=== PATIENT | male | born 1960 | race African-American/Black ===

== ENCOUNTER 2024-12-14 06:13 | Day surgery (SDC) | payer OTHER, SELFPAY ==
[2024-12-09 12:49] VITALS: BMI 29.0
--- NOTE | ~2024-12-14 | XR_ITS ---
INTRAOPERATIVE FLUOROSCOPY: CLINICAL HISTORY: 64 years old Male; BILATERAL L2-3 TRANSFORAMINAL EPIDURAL STEROID INJECTION PROCEDURE COMMENTS: Limited intraoperative fluoroscopy of the lumbar spine was performed. CUMULATIVE DOSE: 22.4 mGy FLUOROSCOPY TIME: 44 seconds FINDINGS/IMPRESSION: Please refer to operative note for further details. Reviewed, dictated and finalized at location A.
[2024-12-14 07:06] VITALS: BP 141/77; PULSE 76; RESP 18; TEMP 36.8; O2SAT 100; BMI 29.9
--- NOTE | 2024-12-14 07:21 | WPDHPUPDATE1 ---
History and Physical Update Update Date/Time: 12/14/24 07:21 History and Physical has been reviewed, including an updated exam of the patient. There are NO changes in the patient's condition. Risks, benefits, and alternatives have been discussed and questions answered. Patient agrees to proceed with procedure.
--- NOTE | 2024-12-14 07:22 | P.OP_ITS ---
Procedure Note - Detailed Date of Procedure 12/14/24 Pre-op Diagnosis Spondylosis w/o Myelopathy or Radiculopathy, Post-op Diagnosis Same Procedure Performed Bilateral Lumbar Transforaminal Epidural Steroid Injection under Fluoroscopic G uidance and with Contrast Control at L2-3. Surgeon Wilberto Mary MD Anesthesia Local Description of Procedure INFORMED CONSENT: Risks, benefits and alternatives to the procedure were discussed in detail with the patient who expressed explicit understanding and consent to proceed. Patient was informed verbally and in written form regarding the risks associated with the procedure including the low risk of serious infection, bleeding/bruising, allergic reaction, nerve or organ injury, paralysis, procedural site pain or discomfort, worsening pain and/or mobility, failure to treat and/or disfigurement. The patient expressed explicit understanding and consent to proceed. All materials required for the procedure were available prior to procedure start. Site and side was marked prior to procedure and confirmed in the presence of the patient. PROCEDURE IN DETAIL: The patient was brought to the procedural suite and placed in the prone position. Patient was made comfortable with use of pillows under the head/chest, hips and ankles. Skin overlying the injection site was prepared broadly with ChloraPrep applicator and draped in a sterile manner. Aseptic technique was employed throughout. The endplates of the vertebral body at the site of interest were aligned in the AP view. Ipsilateral oblique angulation was utilized to better visualize the neuroforamen of interest. Local anesthesia was established by infiltration with approximately 5 mL of 0.5% PF lidocaine via a 1-1/2 inch 27-gauge needle. A 22-gauge 5.0 inch Jaki (pencil point) spinal needle was advanced until the needle approached the 6 o'clock position on the pedicle just superior to the exiting nerve root. on the right at L2-3. Lateral view was utilized to confirm appropriate position of the needle tip within the superior and posterior portion of the respective foramen. In an AP view, 1 mL of Omnipaque 300 contrast medium was injected after negative aspiration for CSF, blood or other bodily fluid, showing appropriate neurogram without evidence of intravascular or intrathecal spread of contrast. Digital subtraction imaging was used with an additional 1ml of the same contrast medium to confirm absence of intravascular contrast spread. A 1mL solution containing 3 mg of betamethasone was injected after negative repeat aspiration. Appropriate spread of the injectate was confirmed with washout of previously injected contrast. No parasthesias were elicited. Needle was removed completely intact without difficulty. The same exact procedure was repeated for all remaining levels on the contralateral side, left L2-3 neuroforamen, modified as necessary to accommodate for the new target location with identical findings and results and no evidence of complication. Images were saved and documented in the patient chart. Patient's skin was cleaned and sterile bandage applied. The patient tolerated the procedure well. The patient was transported to the recovery area in stable condition where they were observed for an appropriate amount of time prior to discharge, without evidence of complication. The patient was instructed to avoid excessive activity for the next 48 hours, including climbing and frequent use of stairs. Showers only for 48 hours. They were instructed not to drive or operate heavy machinery for 24 hours. They are to monitor for severe headaches, fevers, chills, night sweats, erythema/swelling at the site or any other signs of infection, bleeding/bruising, bowel or bladder changes as well as new pain, weakness or numbness in the upper or lower extremity. Should they notice these changes, they are instructed to call our office immediately or report directly to the nearest Emergency Department if no answer or if after posted office hours. COMPLICATIONS: None COMMENTS: None CONTRAST WASTED: 26 mL Omnipaque 300. STEROID WASTED: 0 mg of betamethasone. Complications No immediate complications Condition Stable Disposition Same day [facility] Billing Surgery - Charge Forward: Surgery Billing
[2024-12-14 07:35] VITALS: BP 133/73; PULSE 86; RESP 10; O2SAT 96
[2024-12-14 07:43] VITALS: BP 128/80; PULSE 82; RESP 15; O2SAT 96
[2024-12-14 07:46] VITALS: BP 135/81; PULSE 84; RESP 10; O2SAT 97
[2024-12-14] MEDS: BETAMETHASONE SODIUM PHOSPHATE PF INJ 6 MG/ML VIAL INFILTRATE (07:48)
[2024-12-14] MEDS: LIDOCAINE 1% PF INJ 5 ML VIAL INFILTRATE (07:48)
[2024-12-14] MEDS: LIDOCAINE 2% PF LOCAL INJ 5 ML VIAL 1 ML INFILTRATE (07:48)
[2024-12-14 07:51] VITALS: BP 111/93; PULSE 73; RESP 18; O2SAT 100
== END 2024-12-14 08:08 | disposition home or self-care (01) ==
PROVIDERS: PCP Internal Medicine Gastroenterology; Visit Provider Anesthesiology Pain Medicine
PROC: (CPT 64483; principal; 2024-12-14 07:30)
DX: M47.816 Spondylosis without myelopathy or radiculopathy, lumbar region (principal)
CPT/HCPCS: 64483; 99199

== ENCOUNTER 2025-02-08 09:07 | Day surgery (SDC) | payer OTHER, SELFPAY ==
[2025-01-27 08:40] VITALS: BMI 29.5
--- NOTE | ~2025-02-08 | XR_ITS ---
EXAM: XR fluoroscopy no charge - 02/08/2025 10:25 CDT History: 64 years old Male with MEI L3-4,TRANSFORAMINAL EPIDURAL STEROID INJ Fluoroscopy time: 17.1 sec FINDINGS/ IMPRESSION: Multiple fluoroscopic images of epidural steroid injection. Reviewed, dictated and finalized at location A.
--- OUTSIDE RECORDS SUMMARY | 2025-02-08 09:31 | XMS_ITS | Clinical Summary ---
Author Organization [facility] Address [address] [place] [address] Phone Care Team Providers Care Technical Operations Manager Name Role Phone Fermín Yates APRN, STACK YIELD ENGINEER Primary Care Pr ovider Allergies Active Allergy Reactions Criticality Noted Date Comments Tramadol Rash,Other (see Comments) 04/01/2018 Caused shakiness and didn't work Medications risperiDONE (RISPERDAL) 2 MG Tablet Take 2 mg by mouth daily. Active albuterol (PROVENTIL HFA, VENTOLIN HFA) 108 (90 Base) MCG/ACT Aerosol Solution take 2 Puffs by inhalation every 4 hours as needed for Wheezing. Active famotidine (PEPCID) 20 MG Tablet Take 1 Tablet by mouth 2 times daily as needed for Heartburn. 30 Tablet 3 Active empagliflozin (Jardiance) 10 MG TabletIndication s:Type 2 diabetes mellitus without complication, without long-term current use of insulin Take 1 Tablet by mouth daily. 90 Tablet 1 5 Active metFORMIN (GLUCOPHAGE) 500 MG TabletIndication s:Type 2 diabetes mellitus without complication, without long-term current use of insulin Take 1 Tablet by mouth 2 times daily (with meals). 180 Tablet 1 5 Active Acetaminophen-Co deine 300-60 MG TabletIndication s:Chronic back pain Take 1 Tablet by mouth 3 times daily as needed (moderate to severe pain). 90 Tablet 5 Active amLODIPine (NORVASC) 10 MG TabletIndication s:Primary hypertension Take 1 Tablet by mouth daily. 90 Tablet 1 5 Active sucralfate (CARAFATE) 1 GM Tablet Take 1 Tablet by mouth every 6 hours. 120 Tablet 3 025 Discontin ued(Med List Clean Up) amLODIPine (NORVASC) 5 MG Tablet Take 5 mg by mouth daily. Discontin ued(Reord er) acetaminophen-co deine (TYLENOL #3) 300-30 MG TabletIndication s:Chronic back pain Take 1 Tablet by mouth every 6 hours as needed for Moderate or more severe pain. 12 Tablet 4 025 Discontin ued(Alter jan therapy) ketorolac (TORADOL) 10 MG Tablet Take 1 Tablet by mouth every 6 hours as needed for Moderate or more severe pain. 15 Tablet 4 025 Discontin ued(Med List Clean Up) dicyclomine (BENTYL) 20 MG Tablet Take 1 Tablet by mouth every 6 hours. 60 Tablet 4 025 Discontin ued(Med List Clean Up) acetaminophen-co deine (TYLENOL #3) 300-30 MG TabletIndication s:Chronic bilateral low back pain without sciatica Take 1-2 Tablets by mouth every 4 hours as needed for Moderate or more severe pain. 20 Tablet 5 025 Discontin ued(Dupli anupam Order) ketorolac (TORADOL) 10 MG Tablet Take 1 Tablet by mouth every 4 hours as needed for Mild or more severe pain. 30 Tablet 5 025 Discontin ued(Med List Clean Up) empagliflozin (Jardiance) 10 MG Tablet Take 10 mg by mouth daily. Discontin ued(Reord er) metFORMIN (GLUCOPHAGE) 500 MG Tablet Take 500 mg by mouth 2 times daily (with meals). Discontin ued(Reord er) Active Problems Problem Noted Date Diagnosed Date Arthritis Asthma Back pain COPD (chronic obstructive pulmonary disease) Diabetes mellitus Hypertension Schizophrenia Encounters Date Type Department Care Team Description 01/20/2025 Results Follow-Up [facility] - Family Medicine [address] [place] [address] Fermín Yates APRN, CNP CMP (COMPREHENSIVE METABOLIC PANEL), LIPID PANEL, HEMOGLOBIN A1C W/ ESTIMATED GLUCOSE, Additional followed-up results: 6 01/19/2025 Telephone [facility] [address] [place] [address] Fermín Yates APRN, CNP 01/18/2025 10:11 AM CDT - 01/18/2025 11:59 PM CDT Hospital Encounter [facility] [address] [place] [id number] Fermín Yates APRN, CNP Discharge Disposition: Discharged to home or Selfcare 01/18/2025 9:00 AM CDT Office Visit [facility] [address] [place] [address] Fermín Yates APRN, CNP Type 2 diabetes mellitus without complication, without long-term current use of insulin (Primary Dx); Primary hypertension; Chronic back pain; Elevated LFTs; Therapeutic drug monitoring; Screening for prostate cancer; Encounter for hepatitis C virus screening test for high risk patient; Encounter for immunization Discharge Disposition: Discharged to home or Selfcare 01/18/2025 Travel 12/28/2024 Telephone [facility] [address] [place] [address] Fermín Yates APRN, CNP from Last 3 Months Immunizations Immunization Administration Dates Next Due Influenza Vaccine, MDCK,quad rivalent, pres free 03/04/2022 Influenza Vaccine, Quadrivalent, PF 02/01/2023,0 03/13/2021,03/19/2020 Influenza, Injectable, Mdck, Preservative Free 03/02/2024 Pneumococcal conjugate PCV20 , polysaccharide NRR652 conjugate, adjuvant, PF 01/18/2025 TDAP Vaccine 09/20/2022 Social History Tobacco Use Types Packs/Day Years Used Date Smoking Tobacco: Former Cigarettes 0.5 17 1 978 1994 Smokeless Tobacco: Never Tobacco Cessation:Counseling Given: Not Answered Alcohol Use Standard Drinks/Week Comments No 0 (1 standard drink = 0.6 oz pur e alcohol) PHQ-2 Answer Date Recorded Total Score - Questions 1-9 26 12/23 Sex and Gender Information Value Date Recorded Sex Assigned at Not on file Legal Sex Male 8:37 PM CDT Gender Identity Not on file Sexual Orientation Not on file Last Filed Vital Signs Vital Sign Reading Time Taken Comments Blood Pressure 138/84 01/18/2025 8:47 AM CDT Pulse 74 01/18/2025 8:47 AM CDT Temperature 36.7 C (98 F) 01/18/2025 8:47 AM CDT Respiratory Rate 18 01/18/2025 8:47 AM CDT Oxygen Saturation 98% 01/18/2025 8:47 AM CDT Inhaled Oxygen Concentration - - Weight 83.5 kg (184 lb) 01/18/2025 8:47 AM CDT Height 167.6 cm (5' 6) 01/18/2025 8:47 AM CDT Body Mass Index 29.7 01/18/2025 8:47 AM CDT Plan of Treatment Upcoming Encounters Date Type Department Care Team (Late st Contact Info) Description 04/20/2025 11:30 AM CDT [facility] [address] [place] [address] Fermín Yates, NEUROLOGY PHYSICIAN ASSISTANT, STACK YIELD ENGINEER [address] [address] Health Maintenance Due Date Last Done Comments Diabetes: Eye Exam 1962 Diabetes: Foot Exam 1960 Cologuard 11/06/2007 Colonoscopy 11/06/2007 Colorectal Cancer Screening 11/06/2007 Immunochemical Fecal Occult Blood 11/06/2007 Zoster Immunization (1 of 2) 2012 Hepatitis B Immunization (1 of 3 - Risk 3-dose series) 2022 Respiratory Syncytial Virus (RSV) Immunization (Adult) (1 - Risk 60-74 years 1-dose series) 2022 SARS-COV-2 Immunization ( season) 2024 03/13/2023, 06/25/2022, 06/16/2021, Additional history exists Influenza Immunization (#1) 2025 090 02/2024, 02/01/2023, 03/04/2022, Additional history exists Diabetes: Hemoglobin A1c 07/21/2025 025, 06/23/2024, 12/28/2023, Additional history exists Diabetes: Nephropathy Screening 01/18/2026 01/18/2025, 01/18/2025, 06/23/2024, Additional history exists Td Immunization Every 10 Years (Adults With 1 Tdap) 09/20/2032 09/20/2022 DTaP/Tdap/Td Immunization Discontinued 09/20/2022 TdaP Immunization Discontinued 09/20/2022 Hepatitis C Virus (HCV) Screening Discontinued 01/18/2025, 01/18/2025 PSA Discussion Completed 01/18/2025 Pneumococcal Immunization (50+ years) Completed 01/18/2025 Pneumococcal Immunization Combined Discontinued 01/18/2025 Human Papillomavirus (HPV) Immunization Aged Out No longer eligible based on patient's age to complete this topic Meningococcal Immunization (ACWY) Aged Out No longer eligible based on patient's age to complete this topic Rotavirus Immunization Aged Out No lo nger eligible based on patient's age to complete this topic Procedures Procedure Name Priority Date/Time Associated Diagnosis Comments CBC WITH AUTO DIFFERENTIAL Routine 01/18/2025 10:23 AM CDT Type 2 diabetes mellitus without complication, without long-term current use of insulin HEPATITIS C RNA QUANT PCR VIRAL LOAD Routine 01/18/2025 10:23 AM CDT Encounter for hepatitis C virus screening test for high risk patient HEPATITIS C ANTIBODY Routine 01/18/2025 10:23 AM CDT Encounter for hepatitis C virus screening test for high risk patient PSA SCREEN Routine 01/18/2025 10:23 AM CDT Screening for prostate cancer UR MICROALBUMIN/CREATINI NE RATIO RANDOM Routine 01/18/2025 10:23 AM CDT Type 2 diabetes mellitus without complication, without long-term current use of insulin HEMOGLOBIN A1C W/ ESTIMATED GLUCOSE Routine 01/18/2025 10:23 AM CDT Type 2 diabetes mellitus without complication, without long-term current use of insulin COMPLETE BLOOD COUNT (CBC) WITH DIFF Routine 01/18/2025 10:23 AM CDT Type 2 diabetes mellitus without complication, without long-term current use of insulin LIPID PANEL Routine 01/18/2025 10:23 AM CDT Type 2 diabetes mellitus without complication, without long-term current use of insulin CMP (COMPREHENSIVE METABOLIC PANEL) Routine 01/18/2025 10:23 AM CDT Type 2 diabetes mellitus without complication, without long-term current use of insulin EKG 12 LEAD Routine 01/18/2025 10:15 AM CDT Type 2 diabetes mellitus without complication, without long-term current use of insulin URINE DRUG SCREEN Routine 01/18/2025 Chronic back pain Therapeutic drug monitoring from Last 3 Months Results * (ABNORMAL) HEPATITIS C RNA QUANT PCR VIRAL LOAD (01/18/2025 10:23 AM CDT) HCV RNA QUANT PCR 213,000(H) <=0 IU/mL 01/19/2025 10:52 PM CDT [facility] HCV RNA QT LOG10 5.33(H) <=0.00 Log10 IU/mL 01/19/2025 10:52 PM CDT [facility] Blood Venipuncture / Unknown 01/18/2025 10:23 AM CDT 01/19/2025 5:17 AM CDT Narrative [facility] - 01/19/2025 10:52 PM CDT This test was performed using [employer]ANCH[employer] 5800 Real Time PCR. us Fermín Yates APRN, STACK YIELD ENGINEER IMMUNOLOGY ORDER MAGDALENA Final Result [facility] [address] [place] [address], * (ABNORMAL) HEMOGLOBIN A1C W/ ESTIMATED GLUCOSE (01/18/2025 10:23 AM CDT) Pathologist [facility] HGB-A1C 6.5(H) 4.0 - 6.0 % 01/18/2025 11:13 AM CDT [facility] Est Average Glucose 139.9 mg/dL 01/18/2025 11:13 AM CDT [facility] Blood Venipuncture / Unknown 01/18/2025 10:23 AM CDT 01/18/2025 11:02 AM CDT Narrative [facility] - 01/18/2025 11:13 AM CDT HEMOGLOBIN A1C: DIABETIC PATIENTS: WELL-CONTROLLED: 6.2 - 7.0 INTERMEDIATE WELL-CONTROLLED: 7.0 - 9.0 POORLY-CONTROLLED: >9.0 Specimens containing greater than 5% of Hemoglobin F may result in lower than expected % HbA1C results. us Fermín Yates APRN, STACK YIELD ENGINEER CHEMISTRY ORDERA BLES Final Result [facility] [address] [place] [address] * (ABNORMAL) CBC WITH AUTO DIFFERENTIAL (01/18/2025 10:23 AM CDT) [facility] WBC 3.11(L) 4.00 - 12.00 10(3)/mcL 01/18/2025 11:08 AM CDT [facility] RBC 4.88 4.40 - 5.80 10(6)/mcL 01/18/2025 11:08 AM CDT [facility] HEMOGLOBIN (HGB) 14.1 13.0 - 16.5 g/dL 01/18/2025 11:08 AM CDT [facility] HEMATOCRIT (HCT) 43.1 38.0 - 50.0 % 01/18/2025 11:08 AM CDT [facility] MCV 88.3 82.0 - 96.0 fL 01/18/2025 11:08 AM CDT [facility] MCH 28.9 26.0 - 32.0 pg 01/18/2025 11:08 AM CDT [facility] MCHC 32.7 31.0 - 36.0 g/dL 01/18/2025 11:08 AM CDT [facility] PLATELET COUNT 177 140 - 440 10(3)/mcL 01/18/2025 11:08 AM CDT [facility] RDW 13.6 11.8 - 15.5 % 01/18/2025 11:08 AM CDT [facility] MPV 10.2 8.0 - 12.6 fL 01/18/2025 11:08 AM CDT [facility] NEUTROPHILS 39.1(L) 40.0 - 68.0 % 01/18/2025 11:08 AM CDT [facility] LYMPHOCYTES 38.3 19.0 - 49.0 % 01/18/2025 11:08 AM CDT [facility] MONOCYTES 8.4 3.0 - 13.0 % 01/18/2025 11:08 AM T [facility] EOSINOPHILS 12.9(H) 0.0 - 8.0 % 01/18/2025 11:08 AM [facility] BASOPHILS 1.3(H) 0.0 - 1.0 % 01/18/2025 11:08 AM CDT [facility] IMMATURE GRANULOCYTE 0.0 0.0 - 0.4 % 01/18/2025 11:08 AM CDT [facility] Comment:Immature Granulocyte s includes Metamyelocytes, Myelocytes, and Promyelocytes. ABSOLUTE NEUTROPHILS 1.22(L) 1.40 - 5.30 10(3)/mcL 01/18/2025 11:08 AM CDT [facility] ABSOLUTE LYMPHOCYTES 1.19 0.90 - 3.30 10(3)/mcL 01/18/2025 11:08 AM CDT [facility] ABSOLUTE MONOCYTES 0.26 0.10 - 0.90 10(3)/mcL 01/18/2025 11:08 AM CDT [facility] ABSOLUTE EOSINOPHIL 0.40 0.00 - 0.50 10(3)/mcL 01/18/2025 11:08 AM CDT [facility] ABSOLUTE BASOPHILS 0.04 0.00 - 0.10 10(3)/mcL 01/18/2025 11:08 AM CDT [facility] ABSOLUTE IMMATURE GRANULOCYTE 0.00 0.00 - 0.03 10 (3) [facility]. 01/18/2025 11:08 AM CDT [facility] NRBC PER 100 WBC 0 01/19/20 11:08 AM CDT [facility] Blood Venipuncture / Unknown 01/18/2025 10:23 AM CDT 01/18/2025 11:02 AM CDT Fermín Yates APRN, DORIS HEMATOLOGY ORDER MAGDALENA Final Result [facility] [address] [place] [address] * UR MICROALBUMIN/CREATININE RATIO RANDOM (01/18/2025 10:23 AM CDT) RAN UR MICROALBUMIN <0.50 mg/dL 01/18/2025 11:16 AM CDT [facility] Comment:No reference range h as been established. Consider Clinical Correlation. CREATININE URINE 19.1 mg/dL 01/19/20 11:16 AM CDT [facility] Comment:No reference range h as been established. Consider Clinical Correlation. ALB/CREAT RATIO 11:16 AM CDT [facility] Comment:Unable to calculate due to urine microalbumin concentration less than 0.5 mg/dL Urine Non-Phlebotomy Collection / Unknown 01/18/2025 10:23 AM CDT 01/18/2025 11:02 AM CDT Fermín Yates APRN, DORIS URINE ORDERABLES Final Result [facility] [address] [place] [address] * PSA SCREEN (01/18/2025 10:23 AM CDT) PSA SCREEN, TOTAL 0.27 <4.00 ng/mL 01/18/2025 11:49 AM CDT [facility] Blood Venipuncture / Unknown 01/18/2025 10:23 AM CDT 01/18/2025 11:03 AM CDT Narrative [facility] - 01/18/2025 11:49 AM CDT The [employer] Total PSA assay is a Chemiluminescent Microparticle Immunoassay (CMIA) for the quantitative determination of total PSA (both free PSA and PSA complexed to [id number]) in human serum. Total PSA values obtained with different assay methods, including [place] PSA assays, cannot be used interchangeably. Fermín Yates APRN, CNP CHEMISTRY ORDERA BLES Final Result Performing Organization Address [facility] Co de Phone Number [facility] [address] [place] [address] * LIPID PANEL (01/18/2025 10:23 AM CDT) CHOLESTEROL 176 <200 mg/dL 01/18/2025 11:35 AM CDT [facility] TRIGLYCERIDES 50 <150 mg/dL 01/18/2025 11:35 AM CDT [facility] HDL CHOLESTEROL 60 >40 mg/dL 11:35 AM CDT [facility] LDL 106 <130 mg/dL 01/18/2025 11:35 AM CDT [facility] VLDL 10 10 - 50 mg/dL 01/18/2025 11:35 AM CDT [facility] CHOL/HDL RATIO 2.9 0.0 - 4.4 01/18/2025 11:35 AM CDT [facility] NON-HDL CHOLESTEROL 116 <130 mg/dL 01/18/2025 11:35 AM CDT [facility] IS THE PATIENT REQUIRED TO BE FASTING? No 01/18/2025 11:35 AM CDT [facility] Blood Venipuncture / Unknown 01/18/2025 10:23 AM CDT 01/18/2025 11:03 AM CDT Fermín Yates APRN, STACK YIELD ENGINEER CHEMISTRY ORDERA BLES Final Result [facility] [address] [place] [address] * (ABNORMAL) HEPATITIS C ANTIBODY (01/18/2025 10:23 AM CDT) hepatitis C antibody 15.43(H) <1 S/CO 01/19/2025 2:28 AM CDT [facility] Comment: A reflex RNA PCR Confirmation order has been placed and needs to be collected. Please follow proper protocol and notify patient to be drawn. Signal/Cutoff ratio < 0.79 is Nondetected Signal/Cutoff ratio 0.80-0.99 is Grayzone Signal/Cutoff ratio > 0.99 is Detected Supplemental assays are recommended if signal/cutoff ratio is >/=1.00. Signal/cutoff ratio result >/= 5.00 is 97% predictive of positivity for recombinant immunoblot assay (RIBA) and will be reported to the [place] [facility] as required. Result faxed to the [facility] Blood Venipuncture / Unknown 01/18/2025 10:23 AM CDT 01/18/2025 11:02 AM CDT Fermín Yates APRN, STACK YIELD ENGINEER CHEMISTRY ORDERA BLES Final Result [facility] [address] [place] [address] [address], [place] * (ABNORMAL) CMP (COMPREHENSIVE METABOLIC PANEL) (01/18/2025 10:23 AM CDT) SODIUM 139 136 - 145 mmol/L 01/18/2025 11:35 AM CDT [facility] POTASSIUM 4.1 3.5 - 5.1 mmol/L 01/18/2025 11:35 AM CDT [facility] CHLORIDE 106 98 - 107 mmol/L 01/18/2025 11:35 AM CDT [facility] CO2, VENOUS 24 22 - 30 mmol/L 01/18/2025 11:35 AM CDT [facility] ANION GAP 13.1 <18.0 mmol/L 01/18/2025 11:35 AM CDT [facility] GLUCOSE 111(H) 70 - 99 mg/dL 01/18/2025 11:35 AM CDT [facility] BUN 17 8 - 26 mg/dL 01/18/2025 11:35 AM CDT [facility] CREATININE, BLOOD 0.72 0.70 - 1.30 mg/dL 01/18/2025 11:35 AM CDT [facility] BUN/CREATININE RATIO 24(H) 12 - 20 ratio 01/18/2025 11:35 AM CDT [facility] TOTAL PROTEIN 8.3(H) 6.0 - 8.0 g/dL 01/18/2025 11:35 AM CDT [facility] ALBUMIN 4.5 3.5 - 5.0 g/dL 01/18/2025 11:35 AM CDT [facility] A/G RATIO 1.2 1.0 - 2.2 01/18/2025 11:35 AM CDT [facility] CALCIUM 9.5 8.7 - 10.5 mg/dL 01/18/2025 11:35 AM CDT [facility] T BILI 0.6 0.2 - 1.2 mg/dL 01/18/2025 11:35 AM CDT [facility] SGOT (AST) 87(H) <43 U/L 01/18/2025 11:35 AM CDT [facility] SGPT (ALT) 115(H) <56 U/L 01/18/2025 11:35 AM CDT [facility] ALKALINE PHOSPHATASE 112 40 - 150 U/L 01/18/2025 11:35 AM CDT [facility] IS THE PATIENT REQUIRED TO BE FASTING? No 01/18/2025 11:35 AM CDT [facility] GFR, ESTIMATED >60 >=60 01/18/2025 11:35 AM CDT [facility] Comment: Creatinine Clearance is the preferred criteria for selecting drug dose adjustments in renally impaired patients. The GFR is provided as additional pertinent clinical information. GFR is reported in mL/min/1.73 sq m. Calculation based on the Chronic Kidney Disease Epidemiology Collaboration (CKD- EPI) equation refit without adjustment for race. GFR, EST. >60 >=60 025 11:35 AM CDT [facility] GFR, EST. NONAFRICAN >60 >=60 01/18/2025 11:35 AM CDT [facility] Blood Venipuncture / Unknown 01/18/2025 10:23 AM CDT 01/18/2025 11:03 AM CDT us Fermín Yates APRN, STACK YIELD ENGINEER CHEMISTRY ORDERA BLES Final Result [facility] [address] [place] [address] * EKG 12 LEAD (01/18/2025 10:15 AM CDT) Ventricular Rate 67 BPM EXTERNAL EKG Atrial Rate 67 BPM EXTERNAL EKG P-R Interval 172 ms EXTERNAL EKG QRS Duration 86 ms EXTERNAL EKG Q-T Duration 378 ms EXTERNAL EKG QTC CALCULATION 399 ms EXTERNAL EKG P Doyle 73 degrees EXTERNAL EKG R Doyle 74 degrees EXTERNAL EKG T Doyle 56 degrees EXTERNAL EKG 01/18/2025 10:1 5 AM CDT Impressions EXTERNAL EKG - 01/20/2025 9:07 AM CDT Normal sinus rhythm Normal ECG When compared with ECG of 04-JAN-2024 16:24, Questionable change in QRS axis Confirmed by UMER RIVERS ([id number]) on 01/20/2025 9:07:31 AM Narrative Procedure Note Umer Rivers MD - 01/20/2025 IMPRESSION: Normal sinus rhythm Normal ECG When compared with ECG of 04-JAN-2024 16:24, Questionable change in QRS axis Confirmed by UMER RIVERS ([id number]) on 01/20/2025 9:07:31 AM Fermín Yates APRN, CNP IMG ECG ORDERABL ES Final Result EXTERNAL EKG * URINE DRUG SCREEN (01/18/2025) Urine 01/18/2025 Fermín Yates APRN, CNP URINE ORDERABLES Final Result from Last 3 Months Insurance MEDICAID [employer] Care Teams Technical Operations Manager Relationship Specialty Start Date End Date Fermín Yates, LUKE, STACK YIELD ENGINEER [address] [place] [address] PCP - General Advanced Practice Nurse 01/18/25
--- OUTSIDE RECORDS SUMMARY | 2025-02-08 09:33 | XMS_ITS | Clinical Summary ---
Author Organization [email or web address] Address [address] [place] [address] Care Team Providers Care Manager In Training Name Role Phone Adan Grover MD Primary Care Provider Source Comments [email or web address],non-owned Affiliates and Associated Physician Practices is amultiple site organization consisting of ambulatory clinics and hospital sitesin [place], [place], [place] and [place]. This disclosure is being madepursuant to the Care Everywhere program and may not contain all information available regarding this patient. Last updated 18.[email or web address] Allergies Active Allergy Reactions Criticality Noted Date Comments Gabapentin Other High 01/13/2020 Tramadol Other,Unknown Low 04/01/2018 Caused shakiness and didn't work Caused shakiness and didn't work Medications * Be aware that medications may not be up to date on this document. Alwaysverify current medications with the patient. acetaminophen-co deine (TYLENOL #3) 300-30 MG tablet TAKE 1 TABLET BY MOUTH FOUR TIMES A DAY NEEDED 12/15/19 21 Active albuterol HFA (PROVENTIL;COLLIN DENA;PROAIR) 108 (90 Base) MCG/ACT inhaler INHALE 2 PUFF(S) 4 TIMES A DAY BY INHALATION ROUTE. 02/05/20 20 Active albuterol (PROVENTIL;COLLIN DENA) (2.5 MG/3ML) 0.083% nebulizer solution INHALE 3 ML 3 TIMES A DAY BY NEBULIZATION ROUTE. 10/11/19 21 Active amLODIPine besylate Active amLODIPine (NORVASC) 2.5 MG tablet Take 2.5 mg by mouth once daily 12/02/19 21 Active atorvastatin (LIPITOR) 10 MG tablet atorvastatin 10 mg tablet Active baclofen (LIORESAL) 10 MG tablet Take 10 mg by mouth 3 times daily 12/24/19 21 Active beclomethasone dipropionate (QVAR) 40 MCG/ACT inhaler Qvar 40 mcg/actuation Metered Aerosol oral inhaler Active benztropine (COGENTIN) 0.5 MG tablet 12/28/19 21 Active Blood Glucose Monitoring Suppl (Fonix VERIO REFLECT) w/Device KIT USE TO TEST BLOOD SUGAR TWICE DAILY FOR UNCONTROLLED DIABETES MELLITUS 10/11/19 21 Active cetirizine (ZYRTEC) 10 MG tablet cetirizine 10 mg tablet 08/24/19 20 Active cyclobenzaprine (FLEXERIL) 10 MG tablet cyclobenzaprine 10 mg tablet Active dextromethorphan -guaiFENesin (ROBITUSSIN DM) 10-100 MG/5ML syrup TAKE 10 ML EVERY 6 HOURS BY ORAL ROUTE. 09/15/19 21 Active diazePAM (VALIUM) 10 MG tablet diazepam 10 mg tablet Active diclofenac sodium EC (VOLTAREN) 75 MG tablet diclofenac sodium 75 mg tablet,delayed release Active fluticasone propionate (FLONASE) 50 MCG/ACT nasal spray TWO PUFFS IN EACH NOSTRIL DAILY 06/30/19 21 Active doxycycline hyclate (VIBRAMYCIN) 100 MG capsule TAKE 1 CAPSULE BY MOUTH TWICE A DAY 05/26/20 20 Active gabapentin (NEURONTIN) 400 MG capsule gabapentin 400 mg capsule Active gabapentin (NEURONTIN) 300 MG capsule gabapentin 300 mg capsule Active Fonix VERIO test strip USE 1 TEST STRIP TO TEST TWICE A DAY FOR UNCONTROLLED DIABETES 11/29/19 21 Active HYDROcodone-acet aminophen (NORCO) 5-325 MG tablet TAKE 1 TABLET BY MOUTH EVERY 8 HOURS NEEDED FOR MODERATE OR MORE SEVERE PAIN. 11/11/19 21 Active meloxicam (MOBIC) 7.5 MG tablet meloxicam 7.5 mg tablet Active NanteroUCH DELICA PLUS 30G EXTRA FINE LANCETS USE ONE LANCET TO TEST TWICE A DAY FOR UNCONTROLLED DIABETES 10/11/19 21 Active albuterol-ipratr opium (DUO-NEB) 0.5-2.5 (3) MG/3ML nebulizer solution ipratropium 0.5 mg-albuterol 3 mg (2.5 mg base)/3 mL nebulization soln Active ibuprofen (MOTRIN) 600 MG tablet ibuprofen 600 mg tablet Active neomycin-polymyx in-hc (CORTISPORIN) 3.5-58383-9 otic suspension ADMINISTER 4 DROPS INTO THE RIGHT EAR 3 (THREE) TIMES A DAY 02/11/20 20 Active ondansetron, disintegrating, (ZOFRAN ODT) 4 MG tablet DISSOLVE 1 TABLET ORAL EVERY 4 HOURS NEEDED FOR NAUSEA OR VOMITING. 05/11/20 20 Active risperiDONE (RISPERDAL) 2 MG tablet Take 2 mg by mouth 2 times daily 12/02/19 21 Active Active Problems Problem Noted Date Diagnosed Date Spinal stenosis of lumbar region 11/15/2020 Trochanteric bursitis of right hip 06/07/2020 Low back strain, initial encounter 06/04/2018 Arthritis 08/28/2017 Chronic lung disease 08/28/2017 Diabetes mellitus 08/28/2017 Osteoporosis 08/28/2017 Asthma 08/28/2017 Osteoarthritis of lumbar spine 09/28/2015 Positive antinuclear antibody 09/28/2015 Chronic pain 09/28/2015 Social History Tobacco Use Types Packs/Day Years Used Date Smoking Tobacco: Never Assessed Sex and Gender Information Value Date Recorded Sex Assigned at Not on file Legal Sex Male 1:57 PM CDT Gender Identity Not on file Sexual Orientation Not on file Plan of Treatment Health Maintenance Due Date Last Done Comments COLOGUARD (AGES 45-75) - COL ON CA SCREENING 1962 COLON MONITORING 1962 COLONOSCOPY - COLON CA SCREENING 1962 CT COLONOGRAPHY - COLON CA SCREENING 1962 Colorectal Cancer Screening 1962 FIT - COLON CA SCREENING 1962 FLEX SIG - COLON CA SCREENING 1962 HIV SCREENING 1977 HEPATITIS C SCREENING 10/31/1980 DTAP/TDAP/TD VACCINES (1 - Tdap) 1981 PNEUMOCOCCAL VACCINE 50+ (1 of 2 - PCV) 1981 ZOSTER VACCINE (1 of 2) 2012 DIABETES-FOOT EXAM WITH MONOFILAMENT 02/05/2021 DIABETES-HGB A1C 03/15/2021 09/12/2020 DIABETES-SERUM CREATININE 09/12/20212020, 09/12/2020, 09/12/2020 Respiratory Syncytial Virus (RSV) Vaccine Pt: or over 60 yrs (1 - Risk 60-74 years 1-dose series) 2022 COVID-19 VACCINE (2023-2 5 season) 2024 DEPRESSION SCREENING 06/24/2024 DIABETES - URINE PROTEIN SCREENING 06/24/2024 INFLUENZA VACCINE (#1) 2025 HEPATITIS B VACCINE Aged Out No longe r eligible based on patient's age to complete this topic HIB VACCINE Aged Out No longer eligi ble based on patient's age to complete this topic HPV VACCINE Aged Out No longer eligi ble based on patient's age to complete this topic MENINGOCOCCAL (Group B) VACCINE SHARED DECISION-MAKING Aged Out No longer eligible based on patient's age to complete this topic MENINGOCOCCAL GROUPS A/C/Y/W VACCINE Aged Out No longer eligible b ased on patient's age to complete this topic Insurance [facility] Care Teams Manager In Training Relationship Specialty Start Date End Date Adan Grover MD [address] [place] [address] PCP - General 12/29/20
--- OUTSIDE RECORDS SUMMARY | 2025-02-08 09:33 | XMS_ITS | Clinical Summary ---
Author Organization [facility] Address [address] [place] [address] Care Team Providers Care Educational Psychology Professor Name Role Phone Adan Grover MD Primary Care Provider Allergies Active Allergy Reactions Criticality Noted Date Comments Gabapentin Other (See comments) High 01/13/2020 Impaired vision Tramadol Unknown,Other (See comments) Low 04/01/2018 Caused shakiness and didn't work Medications amLODIPine (NORVASC) 5 mg tablet Take 1 tablet (5 mg total) by mouth daily Active atorvastatin (LIPITOR) 10 mg tablet atorvastatin 10 mg tablet Active fluticasone (FLONASE) 50 mcg/actuation nasal sprayIndicati ons:rhinitis Administer 1 spray into each nostril 2 (two) times a day. 16 g 03/28/20 18 Active benztropine (COGENTIN) 0.5 mg tablet Take 1 tablet (0.5 mg total) by mouth as needed 11/18/19 20 Active beclomethason e (QVAR) 40 mcg/actuation inhaler Qvar 40 mcg/actuation Metered Aerosol oral inhaler Active cetirizine (ZyrTEC) 10 mg tablet cetirizine 10 mg tablet 08/24/19 20 Active diazePAM (VALIUM) 10 mg tablet Active ipratropium-a lbuteroL (DUO-NEB) 0.5-2.5 mg/3 mL nebulizer solution ipratropium-albu terol 0.5 mg-3 mg(2.5 mg base)/3 mL nebulization soln Active meloxicam (MOBIC) 7.5 mg tablet Active acetaminophen -codeine (TYLENOL with CODEINE #3) 300-30 mg per tablet acetaminophen 300 mg-codeine 30 mg tablet Take one tab three times daily as tolerated M54. Active metFORMIN (GLUCOPHAGE) 500 mg tablet Take 1 tablet (500 mg total) by mouth 2 (two) times a day Active Jardiance 10 mg tablet Take 1 tablet (10 mg total) by mouth daily Active sucralfate (CARAFATE) 1 gram tablet Take 1 tablet (1 g total) by mouth 4 (four) times a day Active guaiFENesin ER (MUCINEX) 600 mg 12 hr tablet every 12 hours Activ e dextromethorp stewart-guaiFENes in (ROBITUSSIN-D M) 2-20 mg/mL liquid dextromethorphan -guaifenesin 10 mg-100 mg/5 mL oral syrup Active montelukast (SINGULAIR) 10 mg tablet Take 1 tablet (10 mg total) by mouth nightly 02/29/20 23 Active risperiDONE (RisperDAL) 2 mg tablet Take 1 tablet (2 mg total) by mouth as needed 02/09/20 23 Active Viagra 100 mg tablet Take 1 tablet (100 mg total) by mouth as needed Active oxyCODONE-temo taminophen (PERCOCET) 5-325 mg per tabletIndicat ions:Pain Take 1-2 tablets by mouth every 8 (eight) hours as needed for pain 20 tablet 04/22/20 23 Active cyclobenzapri ne (FLEXERIL) 10 mg tablet Take 1 tablet (10 mg total) by mouth 2 (two) times a day as needed for muscle spasms. 20 tablet 06/04/20 18 020 Discontinued albuterol HFA (PROVENTIL HFA,VENTOLIN HFA,PROAIR HFA) 90 mcg/actuation inhaler Inhale 2 puffs every 4 (four) hours as needed for wheezing 1 Inhaler 07/16/19 20 020 Discontinued Active Problems Problem Noted Date Diagnosed Date Right inguinal hernia 03/13/2023 Low back strain, initial encounter 06/04/2018 Positive antinuclear antibody 09/28/2015 Chronic pain 09/28/2015 Osteoarthritis of lumbar spine 09/28/2015 Encounters Date Type Department Care Team Description 01/22/2025 Telephone [facility] [address] [place] [address] Carlos Alberto Aj 01/26/25 Appointment Reminder from Last 3 Months Surgical History Surgery Date Site/Laterality Comments TONSILLECTOMY Medical History Medical History Date Comments COPD (chronic obstructive pulmonary disease) Hypertension Diabetes mellitus (HCC) Rheumatoid arteritis (HCC) GERD (gastroesophageal reflux disease) Type 2 diabetes mellitus Depression Elevated LFTs Family History Medical History Relation Name Comments Arthritis Father Family history of arthritis - (Added by TW Conv) Arthritis Mother Family history of arthritis - (Added by TW Conv) Relation Name Status Comments Father Mother Social History Tobacco Use Types Packs/Day Years Used Date Smoking Tobacco: Never Passive Smoke Exposure: Never Smokeless Tobacco: Never Tobacco Cessation:Counseling Given: Not Answered Alcohol Use Standard Drinks/Week Comments No 0 (1 standard drink = 0.6 oz pur e alcohol) AUDIT-C Answer Date Recorded Q1: How often do you have a drink containing alc ohol? Never 03/13/2024 Average Number of Drinks Not on file 024 Frequency of Binge Drinking Not on file 02/23 Personal Safety Answer Date Recorded Have you ever been in or are you currently in a harmful physical or emotional relationship or is someone making you feel afraid or unsafe? 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 [employer] Gender Identity Not on file Sexual Orientation Not on file Obstetrics History Last Filed Vital Signs Vital Sign Reading Time Taken Comments Blood Pressure 140/82 05/01/2024 10:45 PM [employer] Pulse 70 05/01/2024 10:45 PM [employer] Temperature 37.4 C (99.3 F) 05/01/2024 5:18 PM [employer] Respiratory Rate 18 05/01/2024 10:45 PM [employer] Oxygen Saturation 96% 05/01/2024 10:45 PM [employer] Inhaled Oxygen Concentration - - Weight 81.6 kg (180 lb) 05/01/2024 5:18 PM [employer] Height 167.6 cm (5' 6) 05/01/2024 5:18 PM [employer] Body Mass Index 29.05 05/01/2024 5:18 PM [employer] Plan of Treatment Health Maintenance Due Date Last Done Comments Colon Cancer Screening-Colonoscopy 1962 Depression Screening 1962 Hepatitis C Screening 1962 Prostate Cancer Screening-PSA 1962 Hepatitis B Screening 1980 Regular Well Visit/Exam 18-64 1980 Pneumococcal vaccine <65 (1 of 2 - PCV) 1981 Zoster Vaccine (1 of 2) 2012 Covid-19 Vaccine (4 - 2023-2 5 season) 2024 06/16/2021, 10/20/2020, 09/23/2020 Influenza Vaccine (#1) 2025 , 02/01/2023, 03/04/2022, Additional history exists DTaP/Tdap/Td Vaccine (2 - Td or Tdap) 09/20/2032 09/20/2022 Medical Devices Implanted Type Area Manager [employer]icon[employer] Device Identifier Shelf Expiration Date Model / Serial / Lot [employer] Progrip 15x9cm Self Life Guard Rectangle Mesh Surgical Polyester Hernia [id number] - [id number] Implanted:Qty: 1 on 04/22/2023 by Skip Gonzalez MD at [facility] Right: Inguinal [employer] 11/22/2027 [id number] / / [id number] Insurance [facility] Advance Directives For more information, please contact: [phone] * Full Code (Latest Code Status on File) Date Activated Date Inactivated Comments 03/13/2024 8:02 AM 03/13/2024 2:29 PM Care Teams Educational Psychology Professor Relationship Specialty Start Date End Date Adan Grover MD [address] [place] [id number] [facility] - General 08/31/18
--- NOTE | 2025-02-08 09:49 | P.OP_ITS ---
Procedure Note - Detailed Date of Procedure 02/08/25 Pre-op Diagnosis Lumbar radiculopathy, neural foraminal stenosis of the lumbar spine Post-op Diagnosis Same Procedure Performed Bilateral Lumbar Transforaminal Epidural Steroid Injection under Fluoroscopic Guidance and with Contrast Control at L3-4. Surgeon Wilberto Mary MD Anesthesia Local Description of Procedure INFORMED CONSENT: Risks, benefits and alternatives to the procedure were discussed in detail with the patient who expressed explicit understanding and consent to proceed. Patient was informed verbally and in written form regarding the risks associated with the procedure including the low risk of serious infection, bleeding/bruising, allergic reaction, nerve or organ injury, paralysis, procedural site pain or discomfort, worsening pain and/or mobility, failure to treat and/or disfigurement. The patient expressed explicit un derstanding and consent to proceed. All materials required for the procedure were available prior to procedure start. Site and side was marked prior to procedure and confirmed in the presence of the patient. PROCEDURE IN DETAIL: The patient was brought to the procedural suite and placed in the prone position. Patient was made comfortable with use of pillows under the head/chest, hips and ankles. Skin overlying the injection site was prepared broadly with ChloraPrep applicator and draped in a sterile manner. Aseptic technique was employed throughout. The endplates of the vertebral body at the site of interest were aligned in the AP view. Ipsilateral oblique angulation was utilized to better visualize the neuroforamen of interest. Local anesthesia was established by infiltration with approximately 5 mL of 0.5% PF lidocaine via a 1-1/2 inch 27-gauge needle. A 22-gauge 3.5 inch Jaki (pencil point) spinal needle was advanced until the needle approached the 6 o'clock position on the pedicle just superior to the exiting nerve root. on the right at L3-4. Lateral view was utilized to confirm appropriate position of the needle tip within the superior and posterior portion of the respective foramen. In an AP view, 1 mL of Omnipaque 300 contrast medium was injected after negative aspiration for CSF, blood or other bodily fluid, showing appropriate neurogram without evidence of intravascular or intrathecal spread of contrast. Digital subtraction imaging was used with an additional 1ml of the same contrast medium to confirm absence of intravascular contrast spread. A 1mL solution containing 3 mg of betamethasone was injected after negative repeat aspiration. Appropriate spread of the injectate was confirmed with washout of previously injected contrast. No parasthesias were elicited. Needle was removed completely intact without difficulty. The same exact procedure was repeated for all remaining levels on the ipsilateral side, right L3-4 neuroforamen, modified as necessary to accommodate for the new target location with identical findings and results and no evidence of complication. Images were saved and documented in the patient chart. Patient's skin was cleaned and sterile bandage applied. The patient tolerated the procedure well. The patient was transported to the recovery area in stable condition where they were observed for an appropriate amount of time prior to discharge, without evidence of complication. The patient was instructed to avoid excessive activity for the next 48 hours, including climbing and frequent use of stairs. Showers only for 48 hours. They were instructed not to drive or operate heavy machinery for 24 hours. They are to monitor for severe headaches, fevers, chills, night sweats, erythema/swelling at the site or any other signs of infection, bleeding/bruising, bowel or bladder changes as well as new pain, weakness or numbness in the upper or lower extremity. Should they notice these changes, they are instructed to call our office immediately or report directly to the nearest Emergency Department if no answer or if after posted office hours. COMPLICATIONS: None COMMENTS: None CONTRAST WASTED: 26 mL Omnipaque 300. STEROID WASTED: 0 mg of betamethasone. Complications No immediate complications Condition Stable Disposition Same day [facility] Billing Surgery - Charge Forward: Surgery Billing
--- NOTE | 2025-02-08 09:49 | WPDHPUPDATE1 ---
History and Physical Update Update Date/Time: 02/08/25 09:49 History and Physical has been reviewed, including an updated exam of the patient. There are NO changes in the patient's condition. Risks, benefits, and alternatives have been discussed and questions answered. Patient agrees to proceed with procedure.
[2025-02-08 10:01] VITALS: BP 130/93; PULSE 72; RESP 16; TEMP 37; O2SAT 100
[2025-02-08 10:31] VITALS: BP 168/79; PULSE 76; RESP 12; O2SAT 99
[2025-02-08] MEDS: LIDOCAINE 1% PF INJ 5 ML VIAL INFILTRATE (10:31)
[2025-02-08] MEDS: BETAMETHASONE SODIUM PHOSPHATE PF INJ 6 MG/ML VIAL INFILTRATE (10:32)
[2025-02-08] MEDS: LIDOCAINE 2% PF LOCAL INJ 5 ML VIAL INFILTRATE (10:33)
[2025-02-08 10:36] VITALS: BP 137/77; PULSE 72; RESP 18; O2SAT 100
[2025-02-08 10:40] VITALS: BP 122/84; PULSE 65; RESP 16; O2SAT 100
== END 2025-02-08 10:51 | disposition home or self-care (01) ==
PROVIDERS: PCP Internal Medicine Gastroenterology; Visit Provider Anesthesiology Pain Medicine
PROC: (CPT 64483; principal; 2025-02-08 09:50)
DX: M48.061 Spinal stenosis, lumbar region without neurogenic claudication (principal); M54.16 Radiculopathy, lumbar region
CPT/HCPCS: 64483; 64454; 99199